=== PATIENT | female | born 1960 | race Caucasian/White ===

== ENCOUNTER 2024-03-01 12:33 | Outpatient (CLI) | payer BC ==
[2024-03-01 12:52] LABS: Hemoglobin 13.5 g/dL (12.0-15.5); Mean Corpuscular HGB CONC 34.6 g/dL (32.0-36.0); Mean Corpuscular Hemoglobin 32.6 pg (27.0-33.0); Mean Corpuscular Volume 94.2 fl (81.6-98.3); Mean Platelet Volume 10.6 fl (7.4-10.4); Platelet Count 339 10x3/uL (150-450); RBC Distribution Width 12.5 % (11.5-14.5); Red Blood Cell (RBC) Count 4.14 10x6/uL (3.90-5.03); White Blood Cell (WBC) Count 7.1 10x3/uL (3.5-10.5)
[2024-03-01 18:17] LABS: Anion Gap 15 mmol/L (10-20); BUN (Urea Nitrogen) 16 mg/dL (9.8-20.1); Calc. Creatinine Clearance 0 mL/min (70-130); Calcium 9.6 mg/dL (7.8-10.44); Carbon Dioxide 23 mmol/L (23-31); Chloride 105 mmol/L (98-107); Estimated GFR 77; Glucose 100 mg/dL (80-115); Potassium 4.2 mmol/L (3.5-5.1); Sodium 139 mmol/L (136-145)
== END 2024-03-01 12:34 | disposition home or self-care (01) ==
LOC: CSHLAB 12:33
PROVIDERS: ATTEND Orthopaedic Surgery
DX: Z01.812 Encounter for preprocedural laboratory examination (principal); S83.241A Other tear of medial meniscus, current injury, right knee, initial encounter
CPT/HCPCS: 80048; 82306; 85027

== ENCOUNTER 2024-03-05 11:32 | Day surgery (SDC) | payer BC ==
[2024-03-01 12:37] VITALS: BMI 24.2
[2024-03-05] MEDS ORDERED: Gabapentin 300 MG CAP ONE (11:34)
[2024-03-05] MEDS ORDERED: Ketorolac Tromethamine 30 MG (1 mL) VIAL ONE (11:34)
[2024-03-05] MEDS ORDERED: Acetaminophen 325 MG TAB ONE (11:45)
[2024-03-05] MEDS ORDERED: Bupivacaine PF 0.5% 30 ML VIAL ONE (12:40)
[2024-03-05] MEDS ORDERED: EPINEPHrine 1 MG/ML VIAL ONE ×2 (12:40→12:43)
[2024-03-05] MEDS ORDERED: Tranexamic Acid 1,000 MG/10 ML VIAL ONE (12:41)
[2024-03-05] MEDS ORDERED: Ropivacaine 0.5% HCl/PF (150 MG/30 ML VIAL) ONE (12:43)
[2024-03-05] MEDS ORDERED: fentaNYL 50 mcg/mL 1 mL Vial ONE ×2 (12:43→13:18)
[2024-03-05] MEDS ORDERED: Dexamethasone 4 mg/ml Vial ONE ×2 (12:44→14:09)
[2024-03-05] MEDS ORDERED: Ropivacaine 0.2% HCl/PF 20 ML ONE (12:44)
[2024-03-05] MEDS ORDERED: Lidocaine 1% PF 5 ML VIAL ONE ×2 (13:01→13:18)
[2024-03-05] MEDS ORDERED: CEFAZOLIN 2 GM VIAL ONE (13:15)
[2024-03-05] MEDS ORDERED: PROPOFOL 20 ML ONE (13:17)
[2024-03-05] MEDS ORDERED: Ondansetron PF 4 MG/2 ML Vial ONE (14:09)
== END 2024-03-05 15:45 | disposition home or self-care (01) ==
LOC: CSHSDC 11:32
PROVIDERS: ATTEND Orthopaedic Surgery
PROC: 0SBC4ZZ Excision of Right Knee Joint, Percutaneous Endoscopic Approach (ICD-10-PCS; principal; 2024-03-05)
DX: S83.231A Complex tear of medial meniscus, current injury, right knee, initial encounter (principal); M17.11 Unilateral primary osteoarthritis, right knee; M94.261 Chondromalacia, right knee; Z88.2 Allergy status to sulfonamides; E03.9 Hypothyroidism, unspecified; Z79.890 Hormone replacement therapy; Z98.890 Other specified postprocedural states; X58.XXXA Exposure to other specified factors, initial encounter
CPT/HCPCS: J0171; J0665; J1100; J1885; J2405; J2704; J2795; J3010